=== PATIENT | male | born 1960 | race Caucasian/White ===

== ENCOUNTER 2022-07-16 03:28 | Inpatient (IN) ==
[2022-07-16] MEDS ORDERED: ONDANSETRON INJ 2 MG/ML 2 ML VIAL IV STA (03:49)
--- NOTE | 2022-07-16 03:49 | Emergency Department Note ---
History of Present Illness General Chief complaint: Cardiac Assessment Stated complaint: CHEST,BACK PAIN,NAUSEA Time Seen by Provider: 07/16/22 03:32 History of Present Illness Maximum Pain Intensity: 6 62-year-old male presents emergency department states he was eating all day today he started with abdominal discomfort that is midline and radiated to his back with associated vomiting. Patient states then the abdominal pain travel to midsternal region; he did take aspirin prior to arrival. Patient denies current chest pain shortness of breath nausea vomiting diaphoresis. Patient denies any prior history of abdominal history but has HTN and a hx of LBBB. There are no other mitigating or alleviating factors; Home Medications Medication Instructions Recorded Confirmed Type Amlodipine (Norvasc) 10 mg PO DAILY ##0 05/20/15 History CHOLECALCIFEROL (Vitamin D) 1,000 inter.unit PO DAILY ##0 05/20/15 History LOSARTAN POTASSIUM & HYDROCHLO 1 tab PO DAILY ##0 05/20/15 History (HYZAAR) Niacin 500 mg PO DAILY ##0 05/20/15 History Allergies Allergy/AdvReac Type Severity Reaction Status Date / Time chocolate flavor Allergy Unknown nose bleeds Verified 05/20/15 00:29 prednisone AdvReac Shakiness Verified 07/16/22 03:57 Past Med/Surg History Medical History Hypertension Left bundle branch block Social History Smoking Status: Never smoker Preferred Language: Romanian Feels Safe at Home: Yes Immunizations: Past Medical history includes hypertension, no history of AAA no history of cholecystitis no history of any intra-abdominal process. Past surgical history no abdominal surgeries. Review of Systems A total of 10 systems reviewed and were otherwise negative Constitutional: no fever Respiratory: no cough Cardiovascular: no chest pain Gastrointestinal: + abdominal pain and + nausea Musculoskeletal: + back pain Physical Exam Vital Signs Vital Signs - 24 hr 07/16/22 03:32 07/16/22 03:33 Temperature 36.5 C Temperature Source Temporal Artery Scan Pulse Rate 65 Respiratory Rate 18 Respiratory Effort / Characteristics Non-Labored Spontaneous Respiratory Depth Normal Blood Pressure 164/81 H Blood Pressure Mean 108 Pulse Oximetry 99 97 Oxygen Delivery Method Room Air Room Air Sepsis Recent Fever Within 48 Hours No Sepsis New/Unexplained Change in Mental Status No Sepsis Action Taken by Nursing No Action Required GENERAL: Patient is awake alert in no acute distress patient is resting comfortably and showing no signs of anxiety EYES: The conjunctivae are clear. The pupils are round and reactive. EARS, NOSE, MOUTH AND THROAT: The nose is without any evidence of any deformity. Mucous membranes are moist. Tongue is midline. NECK: The neck is nontender and supple RESPIRATORY: Normal respiratory effort is noted there is no evidence of wheezing rhonchi or rales CARDIOVASCULAR: Regular rate and rhythm noted there no murmurs rubs or gallops normal S1 normal S2. GASTROINTESTINAL: The abdomen is soft. Abdomen is nontender. Mildly distended no rebound rigidity guarding no abnormal aortic pulsations or masses PELVIS: The Pelvis is stable. No tenderness to palpation is noted. BACK: No midline tenderness or or step-off noted range of motion in flexion extension as well as rotation no signs of muscle spasm noted MUSCULOSKELETAL/EXTREMITIES: There is no evidence of gross deformity full range of motion is noted in the hips and shoulders. SKIN: There is no obvious evidence of any rash. There are no petechiae, pallor or cyanosis noted. NEUROLOGIC: Patient is awake alert and oriented x3 strength is symmetric Course Reevaluation(s) Reevaluation #1: Patient is resting in no distress with no current chest pain. Has taken aspirin prior to arrival. Time: 05:04 Consultations Consultation #1: Case was discussed with the [facility] hospitalist for admission Time: 05:04 Administered Medications Discontinued Medications Enoxaparin Sodium (Enoxaparin Inj 40 Mg/0.4 Ml Syr) 40 mg SQ Q12H [facility] Stop: 08/15/22 04:59 Last Admin: 07/16/22 05:40 Dose: Not Given Documented By: AMADOU Ioversol (Optiray 300 100ml) 93 ml IV ONCE ONE Stop: 07/16/22 05:01 Last Admin: 07/16/22 04:51 Dose: 93 ml Documented By: BERONICA Ondansetron HCl (Ondansetron Inj 2 Mg/Ml 2 Ml Vial) 4 mg IV NOW STA Stop: 07/16/22 03:50 Last Admin: 07/16/22 03:55 Dose: 4 mg Documented By: FRANCISCO JAVIER Medical Decision Making Medical Records Attestation: I reviewed the patient's medical records. Home Medications Current Medication List: was personally reviewed by me Laboratory Data Attestation: I reviewed the patient's lab results. Result diagrams: 07/16/22 03:46 07/16/22 03:46 Lab Results 07/16/22 07/16/22 07/16/22 Range/Units 03:46 03:46 03:46 WBC 8.73 (4.8-10.8) K/ul RBC 5.25 (4.63-6.08) M/uL Hgb 15.8 (14.0-18.0) g/dl Hct 45.0 (40.1-51.0) % MCV 85.7 (80.0-100.0) fL MCH 30.1 (25.0-34.0) pg MCHC 35.1 (32.0-36.0) g/dL RDW Std Deviation 38.5 (36.4-46.3) fL RDW Coeff of Shelby 12.3 (11.5-14.5) % Plt Count 289 (130-400) K/uL MPV 9.2 L (9.4-12.4) fL Immature Gran % (Auto) 0.3 % Neut % (Auto) 49.1 % Lymph % (Auto) 36.8 % [place] % (Auto) 9.2 % Eos % (Auto) 4.1 % Baso % (Auto) 0.5 % Neut # (Auto) 4.29 (1.4-6.5) K/uL Lymph # (Auto) 3.21 (1.2-3.4) K/uL [place] # (Auto) 0.80 (0.24-0.82) K/uL Eos # (Auto) 0.36 (0-0.50) K/uL Baso # (Auto) 0.04 (0-0.2) K/uL Immature Gran # (Auto) 0.03 H (0.00-0.02) K/uL PT 10.5 (9.0-12.0) Seconds INR 1.0 (0.9-1.1) APTT 27.3 (21.0-31.0) Seconds PTT Ratio 1.0 Sodium 138 (136-145) mmol/L Potassium 3.2 L (3.5-5.1) mmol/L Chloride 100 (98-107) mmol/L Carbon Dioxide 29 (21-32) mmol/L Anion Gap 9 (3-11) BUN 16 (6-23) mg/dl Creatinine 0.77 (0.6-1.4) mg/dl Est Cr Clr Drug Dosing 126.9 ml/min Est GFR ( Amer) 112.7 ml/min Est GFR (Non-Af Amer) 97.3 ml/min BUN/Creatinine Ratio 20.8 H (10-20) Glucose 137 H (70-99(Fasting)) mg/dl Calcium 9.7 (8.5-10.1) mg/dl Total Bilirubin 0.7 (0.2-1.0) mg/dl AST 24 (13-39) U/L ALT 37 (7-52) U/L Alkaline Phosphatase 74 (34-104) U/L Troponin I High Sens 67.3 H* (0-20) pg/ml Total Protein 7.7 (6.0-8.3) gm/dl Albumin 4.5 (3.4-5.0) gm/dl Globulin 3.2 (2.5-4.0) gm/dl Albumin/Globulin Ratio 1.4 (0.9-2) Lipase 16 (11-82) U/L Imaging Data Attestation: I personally reviewed and interpreted this imaging study as follows: My Impression: Chest x-ray interpreted by me is negative for infiltrate; nl mediastinum Radiologist's Impression: * [facility] Patient: BRODY GUERRIER JR (Male) : 60 Status: ER Date: 07/16/22 04:57 Room #: History: DIFFUSE ABD PAIN , BLOATING , NAUSEA , EPIGASTRIC PAIN , APPENDIX PRESENT , 93 ML OPTIRAY 300 Slices: [id number] Priors: Tech: Leonel Alves @ [phone] Exams: CT ABDOMEN & PELVIS With Contrast Contrast: IV Amt: 93 ML Accession Numbers: [id number] Referring Physician: PATRICK PONCE Preliminary Findings Only See Final Report For Complete Findings CT ABDOMEN & PELVIS With Contrast: INDICATION: Diffuse abdominal pain, bloating, nausea, epigastric pain, appendix present. TECHNIQUE: Helical CT of the abdomen and pelvis is performed from the lung bases to the ischial tuberosities following the administration of IV contrast. Axial, sagittal and coronal reformatted images are available. 93 mm of Optiray 300 intravenous contrast. Dose: DLP 1446 mGy-cm. COMPARISON: None. FINDINGS: The lung bases are clear. Imaged portions of the heart are within normal limits. The liver and spleen are normal in size and free of mass lesions. The gallbladder, bile ducts and pancreas are normal. The adrenal glands are unremarkable. The kidneys are normal in size and contour. Symmetric enhancement of the renal parenchyma. No mass or hydronephrosis. Bladder is decompressed, limiting evaluation. Pelvic phleboliths. Reproductive organs are within normal limits as visualized. Appendix is normal. No small bowel obstruction. Stomach is within normal limits. No ascites or free intraperitoneal air. Few areas of calcific plaque. Otherwise, vasculature is unremarkable. No lymphadenopathy. Degenerative changes of the spine, hips, and sacroiliac joints. No acute osseous abnormality. IMPRESSION: No acute abdominal or pelvic findings. Radiologist: Nadeem Cabrera MD5:17 AM10 days left ECG Data Attestation: I personally reviewed and interpreted this ECG as follows: Additional Comments: EKG interpreted by me normal sinus rhythm left bundle branch block rate of [address] segment elevation or depression normal axis MDM Narrative Medical decision making differential diagnosis includes gastritis gastroenteritis pancreatitis biliary colic cholelithiasis cholecystitis acute ID acute coronary syndrome. Plan is to check labs EKG, CT Was evaluated for chest and abdominal pain. Patient was found to have an elevated troponin. Patient has a prior history of left bundle branch block so that is unchanged. Patient's symptoms are concerning for acute coronary syndrome. Patient has taken aspirin prior to arrival. The case was discussed with the [facility] hospitalist for admission Impression & Plan Chest pain, Elevated troponin Discharge Plan Visit Data Chief Complaint: Cardiac Assessment Stated Complaint: CHEST,BACK PAIN,NAUSEA ED Provider: Harshal Heredia Discharge Problem: Chest pain, Elevated troponin Patient Disposition: Being Evaluated by Hospitalist Forms Stand Alone Forms: My [facility] Prescriptions Prescriptions: No Action Amlodipine (Norvasc) 10 MG tablet 10 mg PO DAILY Qty: 0 CHOLECALCIFEROL (Vitamin D) 1,000 INTER.UNIT tablet 1,000 inter.unit PO DAILY Qty: 0 LOSARTAN POTASSIUM & HYDROCHLO (HYZAAR) 1 TAB tablet 1 tab PO DAILY Qty: 0 Niacin 500 MG tablet 500 mg PO DAILY Qty: 0 Referrals Referrals: Patrick Ponce DO [Outside Practitioners] -
[2022-07-16 03:57] LABS: Basophils # (auto) 0.04 K/uL (0-0.2); Basophils % (auto) 0.5 %; Eosinophils # (auto) 0.36 K/uL (0-0.50); Eosinophils % (auto) 4.1 %; Hemoglobin 15.8 g/dl (14.0-18.0); Immature Granulocytes # (auto) 0.03 K/uL (0.00-0.02); Immature Granulocytes % (auto) 0.3 %; Lymphocytes # (auto) 3.21 K/uL (1.2-3.4); Lymphocytes % (auto) 36.8 %; Mean Corpuscular Hemoglobin 30.1 pg (25.0-34.0); Mean Corpuscular Hgb Conc 35.1 g/dL (32.0-36.0); Mean Corpuscular Volume 85.7 fL (80.0-100.0); Mean Platelet Volume 9.2 fL (9.4-12.4); Monocytes % (auto) 9.2 %; Neutrophils # (auto) 4.29 K/uL (1.4-6.5); Neutrophils % (auto) 49.1 %; Platelet Count 289 K/uL (130-400); RDW Coefficient of Variation 12.3 % (11.5-14.5); RDW Standard Deviation 38.5 fL (36.4-46.3); Red Blood Count 5.25 M/uL (4.63-6.08); White Blood Count 8.73 K/ul (4.8-10.8)
[2022-07-16 04:09] LABS: Partial Thromboplastin Time 27.3 Seconds (21.0-31.0); Prothrombin Time 10.5 Seconds (9.0-12.0)
[2022-07-16 04:30] LABS: Albumin Globulin Ratio 1.4 (0.9-2); Albumin Level 4.5 gm/dl (3.4-5.0); BUN Creatinine Ratio 20.8 (10-20); Bilirubin,Total 0.7 mg/dl (0.2-1.0); Calcium 9.7 mg/dl (8.5-10.1); Creatinine Clr Calc Pharmacy 126.9 ml/min; Est GFR (African American) 112.7 ml/min; Est GFR (Non-African American) 97.3 ml/min; Globulin 3.2 gm/dl (2.5-4.0); Potassium 3.2 mmol/L (3.5-5.1); Total Protein 7.7 gm/dl (6.0-8.3)
[2022-07-16 04:41] LABS: Troponin I High Sensitivity 67.3 pg/ml (0-20)
[2022-07-16] MEDS ORDERED: ENOXAPARIN INJ 40 MG/0.4 ML SYR SQ SCH (05:00)
[2022-07-16] MEDS ORDERED: OPTIRAY 300 100mL IV ONE (05:00)
[2022-07-16] MEDS ORDERED: POLYETHYLENE (MIRALAX) 17 GM PACK PO PRN (05:00)
[2022-07-16] MEDS ORDERED: NITROGLYCERIN SL 0.4 MG/TAB TAB SL PRN (05:00)
[2022-07-16] MEDS ORDERED: ACETAMINOPHEN 325 MG TAB PO PRN (05:00)
[2022-07-16] MEDS ORDERED: POTASSIUM CHLORIDE CRTAB 20 MEQ TABCR PO STA (05:02)
[2022-07-16] MEDS ORDERED: ATORVASTATIN 40 MG TAB PO STA (05:07)
[2022-07-16] MEDS ORDERED: Heparin IV Adult Wt-Based Low-Dose WITH Bolus Protocol IV STA (05:30)
[2022-07-16] MEDS ORDERED: HEPARIN SOD (PORCINE) 1000 UNIT/ML IV ONE ×2 (05:48→14:00)
--- NOTE | 2022-07-16 06:24 | History & Physical Report ---
Date of Service July 16, 2022 Assessment & Plan (1) NSTEMI (non-ST elevated myocardial infarction): Plan: - presented with chest pressure and nausea - elevated troponin to 67 - chest pain resolved about 15 minutes prior to my exam - currently without chest pain/discomfort/pressure - HTN, obesity - trend troponin, ECG - started on heparin drip for NSTEMI - Cardiology consult - aspirin, statin - holding BB for now given HR 60s (2) Elevated troponin: Plan: - see plan above - trend (3) HTN (hypertension): Plan: - takes olmesartan and amlodipine - continue - took both prior to presentation Plan DVT ppx: heparin ggt Code Status: Full code Dispo: telemetry Jose Kohler MD [facility] Medicine Admission and Anticipated Discharge Date Admission Date: 07/16/2022 History of Present Illness Chief Complaint: chest pressure Primary Care Provider: Hernando Thomas DO The patient is a 62 year old man with pmh HTN, obesity, LBBB who presented with 4 hours of chest pressure. He says that it started around 11pm after having a lot of food with family for day. He says it was a pressure sensation in his epigastric region that moved to substernal area and was associated with nausea but not vomiting. He denied diaphoresis (but noted diaphoresis in the ED), shortness of breath, light headedness, LOC. He reports that he was sitting on the TV watching the news when this happened. He has never had this happen before and has never had an VT or CVA before. He denies a history of tobacco or alcohol use. He takes medications for BP at night and took both olmesartan and amlodipine tonight prior to coming in. He also reports taking an aspirin prior to presentation as well. He denies other symptoms of fevers or chills, diarrhea, headache, cough, dysuria. In the ED, vitals were significant for elevated BP. Labs were significant for troponin 67, K 3.2. ECG showed LBBB without ischemic changes. He was admitted to medicine for further management. Allergies Allergy/AdvReac Type Severity Reaction Status Date / Time chocolate flavor Allergy Unknown nose bleeds Verified 05/20/15 00:29 prednisone AdvReac Shakiness Verified 07/16/22 03:57 Home Medications Medication Instructions Recorded Confirmed Type Amlodipine (Norvasc) 10 mg PO DAILY ##0 05/20/15 History CHOLECALCIFEROL (Vitamin D) 1,000 inter.unit PO DAILY ##0 05/20/15 History LOSARTAN POTASSIUM & HYDROCHLO 1 tab PO DAILY ##0 05/20/15 History (HYZAAR) Niacin 500 mg PO DAILY ##0 05/20/15 History Past Med/Surg History Medical History Hypertension Left bundle branch block Social History Smoking Status: Never smoker Preferred Language: Khmer Feels Safe at Home: Yes Review of Systems Review of Systems: All systems reviewed & are unremarkable except as noted in Subjective Physical Exam Constitutional: WD/WN, vitals as above + morbidly obese Eyes: PERRL, conjunctivae normal, anicteric sclerae ENMT: external ear and nose normal, oropharynx normal Neck: trachea midline, no thyromegaly Respiratory: normal respiratory effort, lungs clear to auscultation Cardiovascular: RRR, no murmur, no edema Gastrointestinal (Abdomen): normal bowel sounds, soft, nontender, no hepatosplenomegaly Musculoskeletal: no cyanosis or clubbing, extremities motor strength 5/5 Skin: no rashes, warm and dry Neurologic: patellar DTR's 2+ bilat, sensation intact and PERRL, EOMI, accommodation nl, no face palsy, no dysarthria Psychiatric: A+Ox3, euthymic affect Results & Data Results & Data ([facility]) Vital Signs (Past 12 Hours) Vital Signs Temp Pulse Resp BP Pulse Ox O2 Del Method 07/16/22 03:33 97 Room Air 07/16/22 03:32 36.5 C 65 18 164/81 H 99 Room Air Laboratory Results Short CBC 07/16/22 Range/Units 03:46 WBC 8.73 (4.8-10.8) K/ul Hgb 15.8 (14.0-18.0) g/dl Hct 45.0 (40.1-51.0) % Plt Count 289 (130-400) K/uL BMP 07/16/22 03:46 Sodium 138 Potassium 3.2 L Chloride 100 Carbon Dioxide 29 BUN 16 Creatinine 0.77 Glucose 137 H Calcium 9.7 Liver Function 07/16/22 Range/Units 03:46 Total Bilirubin 0.7 (0.2-1.0) mg/dl AST 24 (13-39) U/L ALT 37 (7-52) U/L Alkaline Phosphatase 74 (34-104) U/L Albumin 4.5 (3.4-5.0) gm/dl Medications Administered Current Inpatient Medications Acetaminophen (Acetaminophen 325 Mg Tab) 650 mg PO Q4H PRN PRN Reason: Pain or Fever Stop: 08/15/22 04:59 Aspirin (Aspirin 81 Mg Ectab) 81 mg PO QAM NOMAN Stop: 08/15/22 08:59 Heparin Sodium/Dextrose (Heparin Sodium/Dextrose) 25,000 units in 500 mls @ 20 mls/hr IV .Q24H NOMAN; Protocol Stop: 08/15/22 05:59 Nitroglycerin (Nitroglycerin Sl 0.4 Mg/Tab Tab) 0.4 mg SL UD PRN PRN Reason: Chest Pain Stop: 08/15/22 04:59 Polyethylene Glycol (Polyethylene (Miralax) 17 Gm Pack) 17 gm PO DAILY PRN PRN Reason: Constipation Stop: 08/15/22 04:59 Code Status & VTE Plan Code Status Full code VTE Prophylaxis Plan VTE Prophylaxis will be ordered: Yes
[2022-07-16] MEDS: HEPARIN SODIUM/DEXTROSE 25,000 UNITS/500 ML BAG IV SCH (06:42)
--- NOTE | 2022-07-16 07:00 | CT Scan Report ---
CT OF THE ABDOMEN AND PELVIS WITH CONTRAST CLINICAL HISTORY: Abdominal pain, nausea and bloating. COMPARISON STUDY: None. TECHNIQUE: Following IV administration of 93 mL of Optiray, axial images of the abdomen and pelvis we re obtained from the lung bases to the proximal femurs. Images were reviewed in the axial, sagittal, and coronal planes. IV contrast was administered without complication. Automated exposure control wa s utilized for the study. A dose lowering technique was utilized adhering to the principles of ALARA . CT DOSE: 1446.84 mGy.cm FINDINGS: Lung bases are unremarkable. No pneumatosis, free air or portal venous gas is present. Ther e are no hepatic lesions. There is no biliary or pancreatic ductal dilatation. Spleen, adrenal glands and left kidney are unremarkable. An 8 mm low-attenuation lesion within the upper pole of the right kidney favors a cyst. There is no hydronephrosis. There are no urinary calculi. Caliber and wall thic kness of small and large bowel are normal. There is colonic diverticulosis without evidence for acute diverticulitis. The appendix is normal. There is no lymphadenopathy or ascites. Bladder wall thicken ing is accentuated by underdistention. No acute fracture or suspicious lesion within the visualized s keletal structures. Moderate stool within the right colon. IMPRESSION: 1. No acute process within the abdomen or pelvis. 2. Colonic diverticulosis. No evidence for acute diverticulitis. No bowel obstruction. 2. Moderate stool within the right colon. ACT 112: Negative or not required by law. Electronically signed by: Ralph Hester M.D. 07/16/2022 6:58 AM
--- NOTE | 2022-07-16 07:22 | XRay Report ---
XR chest 1V portable CLINICAL HISTORY: Atypical chest pain. COMPARISON STUDY: Chest radiograph April 11, 2022. FINDINGS: Lung volumes are normal. No pneumothorax or pleural effusion is present. There is no consol idation. There is mild cardiomegaly. Pulmonary vascular congestion without overt pulmonary edema. IMPRESSION: Mild cardiomegaly. Pulmonary vascular congestion without overt edema. ACT 112: Negative or not required by law. Electronically signed by: Ralph Hester M.D. 07/16/2022 7:21 AM
[2022-07-16 07:27] LABS: Chol HDL Ratio 4.8 (0-5)
--- NOTE | 2022-07-16 07:38 | Electrocardiogram Report ---
Test Reason : Blood Pressure : / mmHG Vent. Rate : 065 BPM Atrial Rate : 065 BPM P-R Int : 170 ms QRS Dur : 184 ms QT Int : 468 ms P-R-T Axes : 047 -01 140 degrees QTc Int : 486 ms Normal sinus rhythm Left bundle branch block Abnormal ECG No previous ECGs available Confirmed by Nadeem Roe ([id number]) on 07/16/2022 7:38:14 AM Referred By: Hollis Ponce Confirmed By:Cristo Roe
[2022-07-16 08:06] LABS: Estimated Average Glucose 114 mg/dl; Hemoglobin A1C 5.6 % (4.5-5.6)
[2022-07-16] MEDS ORDERED: amLODIPine BESYLATE 5 MG TAB PO SCH ×2 (09:00→21:00)
[2022-07-16] MEDS: ASPIRIN 81 MG ECTAB PO SCH (09:04)
[2022-07-16] MEDS: CHOLECALCIFEROL 1,000 UNITS 25 MCG TAB PO SCH (09:04)
[2022-07-16] MEDS ORDERED: Nursing to Pharmacy Communication SCH (09:45)
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
[2022-07-16 13:21] LABS: Partial Thromboplastin Ratio 1.1; Partial Thromboplastin Time 30.7 Seconds (21.0-31.0)
--- NOTE | 2022-07-16 14:18 | Ultrasound Report ---
BILATERAL LOWER EXTREMITY VENOUS DOPPLER CLINICAL HISTORY: Bilateral leg pain. COMPARISON STUDY: No previous studies for comparison. TECHNIQUE: Sonography of the deep venous system of the bilateral lower extremities was performed. Co mpression and augmentation were evaluated. FINDINGS: The bilateral common femoral, superficial femoral and popliteal veins were compressible. A ugmentation was normal. Flow was shown within the deep calf vessels. IMPRESSION: No evidence of deep venous thrombus within the bilateral lower extremities. ACT 112: Negative or not required by law. Electronically signed by: Ralph Hester M.D. 07/16/2022 2:16 PM
[2022-07-16 19:45] LABS: Partial Thromboplastin Ratio 1.5; Partial Thromboplastin Time 42.2 Seconds (21.0-31.0)
[2022-07-17] MEDS: HEPARIN SODIUM/DEXTROSE 25,000 UNITS/500 ML BAG IV SCH ×2 (02:33→11:31)
[2022-07-17 03:11] LABS: Partial Thromboplastin Ratio 1.4; Partial Thromboplastin Time 37.4 Seconds (21.0-31.0)
[2022-07-17] MEDS ORDERED: HEPARIN SOD (PORCINE) 1000 UNIT/ML IV ONE (03:30)
[2022-07-17 07:00] LABS: Basophils # (auto) 0.03 K/uL (0-0.2); Basophils % (auto) 0.4 %; Eosinophils # (auto) 0.36 K/uL (0-0.50); Eosinophils % (auto) 5.2 %; Hematocrit (blood only) 44.1 % (40.1-51.0); Hemoglobin 15.5 g/dl (14.0-18.0); Immature Granulocytes # (auto) 0.03 K/uL (0.00-0.02); Immature Granulocytes % (auto) 0.4 %; Lymphocytes % (auto) 36.4 %; Mean Corpuscular Hemoglobin 29.9 pg (25.0-34.0); Mean Corpuscular Hgb Conc 35.1 g/dL (32.0-36.0); Mean Corpuscular Volume 85.1 fL (80.0-100.0); Mean Platelet Volume 9.7 fL (9.4-12.4); Monocytes # (auto) 0.53 K/uL (0.24-0.82); Monocytes % (auto) 7.7 %; Neutrophils # (auto) 3.42 K/uL (1.4-6.5); Neutrophils % (auto) 49.9 %; Platelet Count 301 K/uL (130-400); RDW Coefficient of Variation 12.5 % (11.5-14.5); Red Blood Count 5.18 M/uL (4.63-6.08); White Blood Count 6.87 K/ul (4.8-10.8)
[2022-07-17 07:49] LABS: Albumin Globulin Ratio 1.5 (0.9-2); Albumin Level 4.1 gm/dl (3.4-5.0); BUN Creatinine Ratio 18.8 (10-20); Bilirubin,Total 0.7 mg/dl (0.2-1.0); Calcium 9.2 mg/dl (8.5-10.1); Creatinine Clr Calc Pharmacy 145.1 ml/min; Est GFR (African American) 117.9 ml/min; Est GFR (Non-African American) 101.7 ml/min; Globulin 2.8 gm/dl (2.5-4.0); Magnesium 1.9 mg/dl (1.7-2.4); Phosphorus 3.6 mg/dl (2.5-4.9); Potassium 3.6 mmol/L (3.5-5.1); Total Protein 6.9 gm/dl (6.0-8.3)
[2022-07-17] MEDS: CHOLECALCIFEROL 1,000 UNITS 25 MCG TAB PO SCH (08:04)
[2022-07-17] MEDS: ASPIRIN 81 MG ECTAB PO SCH (08:04)
[2022-07-17] MEDS ORDERED: NITROGLYCERIN/D5W 100MCG/ML 20ML SYR ONE (09:35)
[2022-07-17] MEDS ORDERED: HEPARIN (PORCINE) 1000 UNIT/ML 10 ML (CATH LAB USE ONLY) ONE (09:35)
[2022-07-17] MEDS ORDERED: niCARdipine HCL INJ 2.5 MG/ML 10 ML AMP ONE (09:35)
[2022-07-17] MEDS ORDERED: fentaNYL citrate 100 MCG/2 ML VIAL ONE (09:35)
[2022-07-17] MEDS ORDERED: MIDAZOLAM HCL 1 MG/ML 2ML VIAL ONE (09:35)
[2022-07-17] MEDS ORDERED: ASPIRIN 81 MG CHEW ONE (09:37)
--- NOTE | 2022-07-17 10:28 | Cardiac Catheterization ---
Date of Service July 17, 2022 Cardiac Cath Report Cardiac Cath Report Procedure: 1. Coronary angiography History: This is a 62-year-old gentleman with a history of a chronic left bundle branch block and multiple risk factors for coronary artery disease. He presented with chest pain and had a mild elevation in his high-sensitivity troponin Procedure summary: Start time 10:02 AM End time 10:15 AM Opening aortic pressure 146/92 Closing aortic pressure 130/95 LV pressurevalve not crossed Sedation 1 mg intravenous Versed IV fluid 50 cc normal saline Contrast 59 cc Visipaque Fluoroscopy time 3.9 minutes Radiation 1227 mGy DAP 113.32 Gy/cm Right dominant system AUC score 9 Coronary angiography: Selective injections into the left coronary artery revealed the left main trunk to be widely patent and smooth in appearance. There are 2 large ramus branches from the left main trunk which are also widely patent and normal. The left circumflex artery consists of a single large marginal branch. The left circumflex artery is smooth in appearance widely patent and within normal limits. The LAD extends around the apex of the heart. The LAD is smooth in appearance and widely patent. Selective injections of the right coronary artery reveal it to be dominant. The right coronary artery is smooth in appearance widely patent and with in normal limits. Summary: Widely patent coronary anatomy Recommendations: Continued risk factor modification.
--- NOTE | 2022-07-17 14:31 | Hospitalist Progress Note ---
Date of Service July 17, 2022 Assessment & Plan (1) NSTEMI (non-ST elevated myocardial infarction): Plan: - presented with chest pressure and nausea - elevated troponin to 67 and did not have any significant elevation thereafter - chest pain resolved about 15 minutes prior to my exam - currently without chest pain/discomfort/pressure - started on heparin drip for NSTEMI - Cardiology consult- appreciate input and recommendation -Status post cardiac cath-clean coronaries -Has been on aspirin and statin -Risk factors modification which was discussed with the patient in detail -Likely discharge this afternoon Epigastric discomfort History of abdominal bloatedness CT scan of the abdomen has been negative LFTs are normal and triglyceride only 151 Will get ultrasound of the abdomen to rule out any gallstones He was prescribed with oral Protonix (2) Elevated troponin: Plan: - see plan above -No significant elevation of the troponin to suggest ACS (3) HTN (hypertension): Plan: - takes olmesartan and amlodipine - continue - took both prior to presentation -Blood pressure remains Plan DVT ppx: heparin ggt Code Status: Full code Dispo: telemetry He will be discharged home this afternoon Admission and Anticipated Discharge Date Admission Date: July 16, 2022 Subjective 07/17/2022 The patient was seen and examined in telemetry unit He is a status post negative cardiac cath and denies any significant symptoms following the procedure He will be going home this afternoon Review of Systems Review of Systems: All systems reviewed and are unremarkable except as noted below Physical Exam Physical Exam: Lying in bed comfortably Constitutional: well developed, well nourished and + obese; not ill appearing Eyes: PERRL, conjunctivae normal, anicteric sclerae ENMT: external ear and nose normal, oropharynx normal Neck: trachea midline, no thyromegaly Respiratory: no respiratory distress Auscultation: lungs clear to auscultation bilaterally; no crackles Cardiovascular: Heart Sounds: normal S1 and normal S2; no murmur Extremities: + edema (Trace edema bilaterally) Gastrointestinal (Abdomen): Inspection/Auscultation: normal bowel sounds; abdomen not distended Percussion/Palpation: abdomen soft; abdomen nontender Musculoskeletal: no cyanosis or clubbing, extremities motor strength 5/5 Skin: no rashes, warm and dry Neurologic: Alert, awake and oriented x3. No focal sensory and motor deficit appreciated Psychiatric: A+Ox3, euthymic affect Lymphatic: no cervical or axillary lymphadenopathy Results & Data Results & Data ([facility]) Vital Signs (Past 12 Hours) Vital Signs Temp Pulse Pulse Pulse Resp BP BP 07/17/22 12:44 36.6 C 54 L 18 152/90 H 07/17/22 12:03 36.6 C 58 L 19 141/93 H 07/17/22 13:05 36.4 C L 55 L 55 L 20 157/90 H 07/17/22 11:36 36.5 C 58 L 19 130/77 07/17/22 11:16 36.5 C 58 L 19 149/95 H 07/17/22 10:58 36.5 C 60 60 19 162/85 H 07/17/22 10:40 60 16 165/93 H 07/17/22 10:25 56 L 16 149/83 H 07/17/22 09:27 36.6 C 20 L 66 20 141/87 H 07/17/22 07:47 36.9 C 82 18 106/65 07/17/22 07:02 67 07/17/22 02:48 36.6 C 59 L 18 112/61 Pulse Ox O2 Del Method 07/17/22 12:44 93 Room Air 07/17/22 12:03 94 Room Air 07/17/22 13:05 90 Room Air 07/17/22 11:36 94 Room Air 07/17/22 11:16 95 Room Air 07/17/22 10:58 92 Room Air 07/17/22 10:40 94 Room Air 07/17/22 10:25 94 Room Air 07/17/22 09:27 99 Room Air 07/17/22 07:47 97 07/17/22 07:02 07/17/22 02:48 96 Room Air Laboratory Results Short CBC 07/17/22 Range/Units 06:24 WBC 6.87 (4.8-10.8) K/ul Hgb 15.5 (14.0-18.0) g/dl Hct 44.1 (40.1-51.0) % Plt Count 301 (130-400) K/uL BMP 07/17/22 06:24 Sodium 138 Potassium 3.6 Chloride 102 Carbon Dioxide 30 BUN 13 Creatinine 0.69 Glucose 112 H Calcium 9.2 Liver Function 07/17/22 Range/Units 06:24 Total Bilirubin 0.7 (0.2-1.0) mg/dl AST 23 (13-39) U/L ALT 33 (7-52) U/L Alkaline Phosphatase 69 (34-104) U/L Albumin 4.1 (3.4-5.0) gm/dl Medications Administered Current Inpatient Medications Acetaminophen (Acetaminophen 325 Mg Tab) 650 mg PO Q4H PRN PRN Reason: Pain or Fever Stop: 08/15/22 04:59 Amlodipine Besylate (Amlodipine Besylate 5 Mg Tab) 10 mg PO HS [facility] Stop: 08/15/22 20:59 Last Admin: 07/16/22 22:19 Dose: 10 mg Aspirin (Aspirin 81 Mg Ectab) 81 mg PO QAM [facility] Stop: 08/15/22 08:59 Last Admin: 07/17/22 08:04 Dose: Not Given Heparin Sodium/Dextrose (Heparin Sodium/Dextrose) 25,000 units in 500 mls @ 31 mls/hr IV .Q16H8M [facility]; Protocol Stop: 08/15/22 05:59 Last Titration: 07/17/22 11:31 Dose: Infused Nitroglycerin (Nitroglycerin Sl 0.4 Mg/Tab Tab) 0.4 mg SL UD PRN PRN Reason: Chest Pain Stop: 08/15/22 04:59 Pantoprazole Sodium (Pantoprazole 40 Mg Tab) 40 mg PO QAM [facility] Stop: 08/16/22 14:59 Polyethylene Glycol (Polyethylene (Miralax) 17 Gm Pack) 17 gm PO DAILY PRN PRN Reason: Constipation Stop: 08/15/22 04:59 Vitamin D (Cholecalciferol 1,000 Units 25 Mcg Tab) 1,000 units PO DAILY [facility] Stop: 08/15/22 08:59 Last Admin: 07/17/22 08:04 Dose: Not Given
[2022-07-17] MEDS ORDERED: PANTOprazole 40 MG TAB PO SCH (15:00)
--- NOTE | 2022-07-17 15:28 | Ultrasound Report ---
US abdomen limited HISTORY: 62 years-old Male R/O Gallstone acute right upper quadrant abdominal pain COMPARISON: CT abdomen and pelvis 07/16/2022 TECHNIQUE: Multiple real time sonographic images of the abdominal right upper quadrant were obtained assessing grayscale appearance and color flow FINDINGS: Increased echogenicity of the enlarged liver without hepatic mass. The liver measures up to 19 cm in length. Nonvisualization of the pancreas. Limited study secondary to patient body habitus. Cholelithiasis. There is suggestion of adenomyomatosis of the gallbladder fundus. There is no gallbla dder wall thickening or pericholecystic fluid. Negative sonographic Mcgrath's sign. Normal common bile duct, 4 mm. The imaged right kidney is unremarkable without hydronephrosis. IMPRESSION: 1. Cholelithiasis without sonographic evidence of acute cholecystitis. 2. Probable adenomyomatosis of the gallbladder. 3. No biliary ductal dilation. 4. Hepatic steatosis with hepatomegaly. ACT 112: Negative or not required by law. The above report was generated using voice recognition software. It may contain grammatical, syntax o r spelling errors. Electronically signed by: Kendall Gottlieb M.D. 07/17/2022 3:26 PM
--- NOTE | 2022-07-17 17:51 | Discharge Summary ---
Date of Service July 17, 2022 Admission HPI Per Admitting Provider The patient is a 62 year old man with pmh HTN, obesity, LBBB who presented with 4 hours of chest pressure. He says that it started around 11pm after having a lot of food with family for labor day. He says it was a pressure sensation in his epigastric region that moved to substernal area and was associated with nausea but not vomiting. He denied diaphoresis (but noted diaphoresis in the ED), shortness of breath, light headedness, LOC. He reports that he was sitting on the TV watching the news when this happened. He has never had this happen before and has never had an UT or CVA before. He denies a history of tobacco or alcohol use. He takes medications for BP at night and took both olmesartan and amlodipine tonight prior to coming in. He also reports taking an aspirin prior to presentation as well. He denies other symptoms of fevers or chills, diarrhea, headache, cough, dysuria. In the ED, vitals were significant for elevated BP. Labs were significant for troponin 67, K 3.2. ECG showed LBBB without ischemic changes. He was admitted to medicine for further management. Admission Exam Per Admitting Provider Constitutional: WD/WN, vitals as above + morbidly obese Eyes: PERRL, conjunctivae normal, anicteric sclerae ENMT: external ear and nose normal, oropharynx normal Neck: trachea midline, no thyromegaly Respiratory: normal respiratory effort, lungs clear to auscultation Cardiovascular: RRR, no murmur, no edema Gastrointestinal (Abdomen): normal bowel sounds, soft, nontender, no hepatosplenomegaly Musculoskeletal: no cyanosis or clubbing, extremities motor strength 5/5 Skin: no rashes, warm and dry Neurologic: patellar DTR's 2+ bilat, sensation intact and PERRL, EOMI, accommodation nl, no face palsy, no dysarthria Psychiatric: A+Ox3, euthymic affect Principal Diagnosis Chest pain no ACS, negative cardiac cath, gallstones disease without cholecystitis Discharge Exam Lying in bed comfortably Constitutional well developed, well nourished and + obese; not ill appearing Eyes PERRL, conjunctivae normal, anicteric sclerae ENMT external ear and nose normal, oropharynx normal Neck trachea midline, no thyromegaly Respiratory no respiratory distress Auscultation: lungs clear to auscultation bilaterally; no crackles Cardiovascular Heart Sounds: normal S1 and normal S2; no murmur Extremities: + edema (Trace edema bilaterally) Gastrointestinal (Abdomen) Inspection/Auscultation: normal bowel sounds; abdomen not distended Percussion/Palpation: abdomen soft; abdomen nontender Musculoskeletal no cyanosis or clubbing, extremities motor strength 5/5 Skin no rashes, warm and dry Psychiatric A+Ox3, euthymic affect Lymphatic no cervical or axillary lymphadenopathy Discharge Data Allergies Allergy/AdvReac Type Severity Reaction Status Date / Time chocolate flavor Allergy Unknown nose bleeds Verified 05/20/15 00:29 prednisone AdvReac Shakiness Verified 07/16/22 03:57 Consultations 07/16/22 05:00 Consult Cardiology Routine Procedures Performed Operation Date: 07/17/22 09:30 Actual Procedures p Cineradiography w/Routine Exam - Rufino Stevens DO s Cath, Coronaries ONLY (no LV) - Rufino Stevens DO Ordered Studies 07/16/22 03:40 CT abd pelvis IV con only Urgent 07/16/22 12:21 US leg [US venous doppler LE BI] Routine 07/17/22 07:23 CL Cath Imgs for PACS use only Stat 07/17/22 12:02 US abdomen limited Urgent Hospital Course (1) NSTEMI (non-ST elevated myocardial infarction): - presented with chest pressure and nausea - elevated troponin to 67 and did not have any significant elevation thereafter - chest pain resolved about 15 minutes prior to my exam - currently without chest pain/discomfort/pressure - started on heparin drip for NSTEMI - Cardiology consult- appreciate input and recommendation -Status post cardiac cath-clean coronaries -Has been on aspirin and statin -Risk factors modification which was discussed with the patient in detail -Likely discharge this afternoon Epigastric discomfort History of abdominal bloatedness CT scan of the abdomen has been negative LFTs are normal and triglyceride only 151 Will get ultrasound of the abdomen to rule out any gallstones He was prescribed with oral Protonix (2) Elevated troponin: - see plan above -No significant elevation of the troponin to suggest ACS (3) HTN (hypertension): - takes olmesartan and amlodipine - continue - took both prior to presentation -Blood pressure remains Plan DVT ppx: heparin ggt Code Status: Full code Dispo: telemetry He will be discharged home this afternoon Total Time Total Time Spent Total Time Spent (In Minutes): 35 minutes Discharge Plan Discharge Items Patient Disposition: Home - Self-Care Reason For Visit: CHEST PAIN Discharge Diagnosis: Chest pain no ACS, negative cardiac cath, gallstones disease without cholecystitis Condition on Discharge: Good Activity: Resume your previous activity Non-emergency contact: Primary Care Provider Call non-emergency contact if: you have any medication questions and your symptoms worsen Follow-up/Referrals: Hernando Thomas DO [Primary Care Provider] - (Date & Time 08/08/2022 10:30 AM Provider Hernando Thomas DO Department Cardiology, [facility] ) Hollis Ponce DO [Outside Practitioners] - (Date & Time 07/23/2022 12:00 PM Provider Hollis Ponce DO Department Family Practice [facility] ) Diet: Heart Healthy and Low Fat Addtl Attending Provider Instructions: Please take precautions to avoid falls Try to avoid fatty food Try losing weight and do regular exercise as discussed Please give appointment with your healthcare providers Pending Studies at Discharge: No Stand-Alone Forms: My [facility] [employer], Smoking Cessation Medications and DC Order Prescriptions: New pantoprazole 40 mg Tablet,Delayed Release (Dr/Ec) 40 mg PO QAM 30 Days Qty: 30 0RF Continued Amlodipine (Norvasc) 10 MG tablet 10 mg PO DAILY Qty: 0 CHOLECALCIFEROL (Vitamin D) 1,000 INTER.UNIT tablet 1,000 inter.unit PO DAILY Qty: 0 LOSARTAN POTASSIUM & HYDROCHLO (HYZAAR) 1 TAB tablet 1 tab PO DAILY Qty: 0 Niacin 500 MG tablet 500 mg PO DAILY Qty: 0 Discharge Orders: Discharge Order (Routine); Ordered 07/17/22 Ordered By: Ángel Gtz/Other Patient Handouts: What Are Gallstones, Treating Gallstones, Cardiac Catheterization Dc, Gallstones Dc Admission Data Admit Date/Time: 07/16/22 05:02 Attending Provider: Ángel Alan Admit Provider: Jose Kohler Primary Care Provider: Hernando Thomas Other Providers: Rufino Stevens Other Interventions: Discharge Summary Assessment (RN) Last Done: 07/17/22 16:07
== END 2022-07-17 16:42 | disposition home or self-care (01) | DRG 287 ==
LOC: ED 03:28 → EDINP 05:02 → 2N 12:32 → 2S 07-17 10:29
PROC: CLB.CCO (2022-07-17 09:30)